=== PATIENT | male | born 1970 | race Caucasian/White ===

== ENCOUNTER 2019-03-03 10:03 | Observation (INO) | payer OTHER, BC ==
[2019-03-03] MEDS ORDERED: ONDANSETRON 4 MG INJ IV ×2 (14:30→15:30)
[2019-03-03] MEDS ORDERED: ACETAMINOPHEN 325 MG TAB PO (14:30)
[2019-03-03] MEDS ORDERED: morphine 2 MG INJ IV (15:30)
[2019-03-03] MEDS ORDERED: NACL 0.9% 3 ML SYG IV (15:30)
[2019-03-03] MEDS ORDERED: MAGNESIUM HYDROXIDE 30ML CUP PO (15:30)
[2019-03-03] MEDS: ACCU-CHEK XX ×2 (17:25→20:55)
[2019-03-03] MEDS ORDERED: DEXTROSE 50% 50 ML SYRINGE IV ×2 (17:30)
[2019-03-03] MEDS ORDERED: GLUCOSE GEL 15 GRAM TUBE PO ×2 (17:30)
[2019-03-03] MEDS ORDERED: GLUCAGON 1 MG INJ IM (17:30)
[2019-03-03] MEDS ORDERED: GLUCOSE GEL 15 GRAM TUBE BUCCAL (17:30)
[2019-03-03] MEDS: INSULIN ASPART [NOVOLOG] 3 ML PEN SC ×2 (17:55→20:41)
[2019-03-03] MEDS: metFORMIN 500 MG TAB PO (18:10)
[2019-03-03] MEDS: FAMOTIDINE 20 MG INJ IV (20:29)
[2019-03-03] MEDS: EZETIMIBE 10 MG TAB PO (20:30)
[2019-03-03] MEDS: METOPROLOL 25 MG TAB PO (20:30)
[2019-03-03] MEDS: HEPARIN 5,000 UNIT/1 ML VIAL SC (20:39)
[2019-03-04] MEDS: ACCU-CHEK XX ×5 (02:00→21:37)
[2019-03-04] MEDS: INSULIN ASPART [NOVOLOG] 3 ML PEN SC ×4 (07:55→20:45)
[2019-03-04] MEDS: metFORMIN 500 MG TAB PO ×2 (08:11→17:36)
[2019-03-04] MEDS: LOSARTAN 50 MG TAB PO (08:12)
[2019-03-04] MEDS: FAMOTIDINE 20 MG INJ IV (08:13)
[2019-03-04] MEDS: METOPROLOL 25 MG TAB PO ×2 (08:13→20:40)
[2019-03-04] MEDS: HEPARIN 5,000 UNIT/1 ML VIAL SC ×2 (08:18→20:44)
[2019-03-04] MEDS ORDERED: EZETIMIBE 10 MG TAB PO (09:00)
[2019-03-04] MEDS ORDERED: LOSARTAN 50 MG TAB PO (09:00)
[2019-03-04] MEDS: HYDROCODONE/APAP (5/325) TAB PO (10:37)
[2019-03-04] MEDS: ACETAMINOPHEN 325 MG TAB PO (17:57)
[2019-03-04] MEDS: EZETIMIBE 10 MG TAB PO (20:40)
[2019-03-04] MEDS: FAMOTIDINE 20 MG TAB PO (20:40)
[2019-03-04] MEDS: IBUPROFEN 200 MG TAB PO (21:37)
[2019-03-05] MEDS: ACCU-CHEK XX ×3 (02:00→11:53)
[2019-03-05] MEDS: INSULIN ASPART [NOVOLOG] 3 ML PEN SC ×2 (07:55→11:50)
[2019-03-05] MEDS: LOSARTAN 50 MG TAB PO (08:12)
[2019-03-05] MEDS: metFORMIN 500 MG TAB PO (08:12)
[2019-03-05] MEDS: FAMOTIDINE 20 MG TAB PO (08:13)
[2019-03-05] MEDS: METOPROLOL 25 MG TAB PO (08:13)
[2019-03-05] MEDS: HEPARIN 5,000 UNIT/1 ML VIAL SC (08:15)
== END 2019-03-05 14:45 | disposition home or self-care (01) ==
LOC: E/R 10:03 → TEL 14:14
DX: R55 Syncope and collapse (principal); E11.9 Type 2 diabetes mellitus without complications; K21.9 Gastro-esophageal reflux disease without esophagitis; I10 Essential (primary) hypertension; E78.5 Hyperlipidemia, unspecified; E66.9 Obesity, unspecified; Z68.37 Body mass index [BMI] 37.0-37.9, adult; Z79.84 Long term (current) use of oral hypoglycemic drugs; Z87.891 Personal history of nicotine dependence
CPT/HCPCS: 36415; 70450; 71045; 80048; 80053; 80061; 82550; 82553; 82962; 83036; 83735; 84100; 84436; 84443; 84479; 84484; 85025; 93005; 93306; 93880; 96374; 96376; 99285-25; G0378